=== PATIENT | female | born 1965 | race Caucasian/White ===

== ENCOUNTER 2016-12-02 21:16 | Emergency (ER) | payer OTHER ==
--- NOTE | 2016-12-02 22:01 | PDOC ---
History of Present Illness - General Chief Complaint: Nausea/Vomiting Stated Complaint: WEAKNESS, DIZZINESS,Nausea Time Seen by Provider: 12/02/16 22:00 - History of Present Illness Initial Comments: 51 y/o female with a history of HTN, sarcoidosis (history of pulmonary involvement in the past), and COPD presenting with SOB and generalized weakness since this AM. She states she had the same symptoms two years ago when she was admitted for pneumonia and treated successfully. She has had some recent darkening of her urine as well. She denies fevers, chills, nausea, vomiting, diarrhea, chest pain, or cough. 12/02/16 22:22 Past History - Past Medical History Allergies/Adverse Reactions: Allergies Allergy/AdvReac Type Severity Reaction Status Date / Time latex Allergy Verified 12/02/16 22:30 aspirin AdvReac Mild vomitting Verified 12/02/16 22:30 Home Medications: Ambulatory Orders Ipratropium/Albuterol Sulfate [Combivent Respimat Inhal [place]] 4 gm IH Q6H #1 aer.w.adap 08/20/14 Fluticasone Propionate [Flovent Diskus] 250 mcg IH DAILY 12/02/16 Furosemide [Lasix] 20 mg PO DAILY 12/02/16 Tiotropium [place] [Spiriva] 1 inh IH DAILY 12/02/16 Asthma: Yes Cardiac Disorders: Yes COPD: Yes (SARCOIDOSIS) GI Disorders: Yes (GALLSTONES) HTN: Yes - Suicide/Smoking/Psychosocial Hx Smoking Status: Yes Smoking History: Current every day smoker Have you smoked in the past 12 months: Yes Number of Cigarettes Smoked Daily: 20 'Breaking Loose' booklet given: 08/16/14 Hx Alcohol Use: No Substance Use Type: None Review of Systems - Review of Systems Constitutional: No: Diaphoresis, Fever HEENTM: No: Blurred Vision Respiratory: Yes: Shortness of Breath. No: Cough, Wheezing Cardiac (ROS): No: Chest Pain ABD/GI: Yes: Poor Appetite. No: Nausea, Vomiting : No: Burning, Discharge, Frequency Neurological: No: Headache, Numbness *Physical Exam - Physical Exam General Appearance: Yes: Nourished, Appropriately Dressed. No: Apparent Distress HEENT: positive: EOMI, DOROTHY, Normal Voice, Pharynx Normal Neck: positive: Trachea midline, Rigid. negative: Tender, Supple Respiratory/Chest: positive: Chest Tender. negative: Lungs Clear (Right mid lung crackles and rhonchi with diffuse faint crackles at bilateral bases.), Normal Breath Sounds, Respiratory Distress, Accessory Muscle Use Cardiovascular: positive: Regular Rhythm, Regular Rate (Diffcult to auscultate but clear.), S1, S2, Edema (trace edema). negative: JVD, Murmur ED Treatment Course - LABORATORY CBC & Chemistry Diagram: 12/02/16 22:12 12/02/16 22:12 Medical Decision Making - Medical Decision Making 51 year old female with history of sarcoidosis and COPD presenting with weakness and SOB concerning for pneumonia. R mid lung auscultation and pulse ox of 88% on RA are further corroborating some acute pulmonary pathology possibly exacerbating a chronic desaturation. Will cautiously provide supplemental oxygen given her presumed chronic hypoxic/ hypercarbic state. This is less likely PE, pneumothorax, or acute heart failure 12/02/16 22:49 12/02/16 23:38 PORT Score 61, PORT CLASS II, Low Risk <1% 12/02/16 23:[address] Parra and he agrees to an admission to further workup the weakness and hypoxia. Objectively the patient was hypoxic to mid to upper 80s on RA and has an RON ( Cr. 1.3 up from 0.9 on previous admission). Will order dry CT to determine if their is any underlying infection given CXR clear and no WBC to speak of. 12/03/16 00:30 *DC/Admit/Observation/Transfer Diagnosis at time of Disposition: Hypoxia, Acute kidney injury - Discharge Dispostion Admit: Yes - Referrals Referrals: Garth Grewal MD [Primary Care Provider] -
[2016-12-02] MEDS ORDERED: SODIUM CHLORIDE 1,000 ML IV STA (22:14)
[2016-12-02 22:24] LABS: BASOPHIL 1.2 % (0-2.0); WHITE BLOOD COUNT 7.6 K/mm3 (4.0-10.0)
[2016-12-02 22:25] VITALS: TEMP 98.8; BMI 75.6
[2016-12-02 22:27] LABS: VENOUS PH 7.4 (7.32-7.42)
[2016-12-02 22:35] LABS: EOSINOPHIL 2.1 % (0-4.5); MCH 33.6 pg (25.7-33.7); MCHC 34.6 g/dl (32.0-36.0); MEAN PLT VOLUME 8.5 fl (7.5-11.1); NEUTROPHILS 55.7 % (42.8-82.8); PLATELET COUNT 260 K/MM3 (134-434); RDW 14.3 % (11.6-15.6)
--- NOTE | 2016-12-02 22:52 | PDOC ---
Attending Attestation - Resident Resident Name: BekahRenanhudson - ED Attending Attestation I have performed the following: I have examined & evaluated the patient, The case was reviewed & discussed with the resident, I agree w/resident's findings & plan, Exceptions are as noted - HPI HPI: 12/02/16 22:44 This is a 51 yo F presenting to the ER with a complaint of weakness, cough Pt states she was being treated for pneumonia Pt has an underlying history of pulmonary sarcoidosis 12/02/16 22:57 - Physicial Exam PE: 12/02/16 22:54 Selected Entries 12/02/16 22:21 O2 Sat by Pulse 87 L Oximetry (%) On examination: No tachypnea Bibasilar crackles Right medial lung crackles No wheezing 12/02/16 22:57
[2016-12-02 23:08] LABS: ALBUMIN 4.2 g/dl (3.4-5.0); ALK PHOS 114 U/L (45-117); ANION GAP 5 (8-16); BILIRUBIN,TOTAL 0.6 mg/dL (0.2-1.0); CALCIUM 9.3 mg/dL (8.5-10.1); CO2 29 mmol/L (21-32); CREATININE 1.3 mg/dL (0.55-1.02); GLUCOSE,RANDOM 108 mg/dL (74-106); MAGNESIUM 2.3 mg/dL (1.8-2.4); PHOSPHOROUS 3.4 mg/dL (2.5-4.9); SGOT/AST 27 U/L (15-37); SGPT/ALT 49 U/L (12-78); TOT PROT 7.2 g/dl (6.4-8.2)
[2016-12-03 01:04] LABS: URINE APPEARANCE CLOUDY; URINE BILIRUBIN NEGATIVE (NEGATIVE); URINE BLOOD NEGATIVE (NEGATIVE); URINE COLOR YELLOW; URINE GLUCOSE (UA) NEGATIVE (NEGATIVE); URINE KETONE NEGATIVE (NEGATIVE); URINE LEUK ESTERASE TRACE (NEGATIVE); URINE NITRITE NEGATIVE (NEGATIVE); URINE PROTEIN NEGATIVE (NEGATIVE); URINE UROBILINOGEN NEGATIVE mg/dL (0.2-1.0)
[2016-12-03 01:09] LABS: URINE RBC <1 /hpf (0-3); URINE WBC 9 /hpf (3-5)
[2016-12-03 01:16] LABS: URINE MARIJUANA THC NEGATIVE ng/ml (CUTOFF=50)
[2016-12-03 01:54] VITALS: BP 108/66; PULSE 78
--- NOTE | 2016-12-03 10:42 | EKG ---
Test Reason : Blood Pressure : / mmHG Vent. Rate : 085 BPM Atrial Rate : 085 BPM P-R Int : 162 ms QRS Dur : 096 ms QT Int : 374 ms P-R-T Axes : 022 028 030 degrees QTc Int : 445 ms SINUS RHYTHM WITH OCCASIONAL PREMATURE VENTRICULAR COMPLEXES OTHERWISE NORMAL ECG WHEN COMPARED WITH ECG OF 15-JAN-2014 18:34, PREMATURE VENTRICULAR COMPLEXES ARE NOW PRESENT Confirmed by CELIA BONE, KARY ([id number]) on 12/03/2016 10:41:43 AM Referred By: Confirmed By:KARY YANG MD
== END 2016-12-03 02:00 | disposition left against medical advice (07) ==
LOC: JER 21:16 → JERBED 12-03 00:33 → UNDOADMIN 12-03 00:33 → JER 12-03 02:00
PROC: 3E0337Z Introduction of Electrolytic and Water Balance Substance into Peripheral Vein, Percutaneous Approach (ICD-10-PCS; principal; 2016-12-02)
DX: R09.02 Hypoxemia (principal); N17.9 Acute kidney failure, unspecified; I10 Essential (primary) hypertension; D86.0 Sarcoidosis of lung; J45.909 Unspecified asthma, uncomplicated
CPT/HCPCS: 71020-TC; 80053; 80307; 81003; 81015; 83605; 83735; 84100; 84703; 85025; 93005; 93010; 99283-25

== ENCOUNTER 2017-04-21 03:01 | Emergency (ER) | payer OTHER ==
[2017-04-21] MEDS ORDERED: LORazepam 1 MG TABLET PO ONE (03:15)
[2017-04-21] MEDS ORDERED: LORazepam 0.5 MG TABLET ONE (03:16)
--- NOTE | 2017-04-21 03:21 | PDOC ---
History of Present Illness - General Chief Complaint: Psychiatric Stated Complaint: FEELING JITTERY Time Seen by Provider: 04/21/17 03:04 - History of Present Illness Initial Comments: 04/21/17 03:15 52 F with h/o anxiety/depression, sarcoidosis, presenting to ER with complaint of "jitteriness". Pt states that she has chronic insomnia and anxiety. In order to sleep at night, she takes lorazepam 2mg. However, she ran out of this recently. Her PMD, Dr. Grewal, was supposed to refill it but according to pt, he inadvertently wrote her a prescription for klonopin instead, which she states does not work for her. Pt states that she took the klonopin tonight but was still unable to go to sleep, prompting her to come to the ER. Pt denies CP/SOB/palpitations. Denies F/C. Denies N/V/D. Pt denies ETOH or other substance use. Smokes cigarettes daily. Pt denies SI/HI/AVH. Past History - Past Medical History Allergies/Adverse Reactions: Allergies Allergy/AdvReac Type Severity Reaction Status Date / Time latex Allergy Verified 04/21/17 03:04 aspirin AdvReac Mild vomitting Verified 04/21/17 03:04 Home Medications: Ambulatory Orders Ipratropium/Albuterol Sulfate [Combivent Respimat Inhal [place]] 4 gm IH Q6H #1 aer.w.adap 08/20/14 Fluticasone Propionate [Flovent Diskus] 250 mcg IH DAILY 12/02/16 Furosemide [Lasix] 20 mg PO DAILY 12/02/16 Tiotropium [place] [Spiriva] 1 inh IH DAILY 12/02/16 Asthma: Yes Cardiac Disorders: Yes COPD: Yes (SARCOIDOSIS) GI Disorders: Yes (GALLSTONES) HTN: Yes - Suicide/Smoking/Psychosocial Hx Smoking Status: Yes Smoking History: Current every day smoker Have you smoked in the past 12 months: Yes Number of Cigarettes Smoked Daily: 20 'Breaking Loose' booklet given: 08/16/14 Hx Alcohol Use: No Drug/Substance Use Hx: No Substance Use Type: None Review of Systems - Review of Systems Comments:: 04/21/17 03:18 "GENERAL/CONSTITUTIONAL: No fever or chills. No weakness. HEAD, EYES, EARS, NOSE AND THROAT: No change in vision. No ear pain or discharge. No sore throat. CARDIOVASCULAR: No chest pain or shortness of breath. RESPIRATORY: No cough, wheezing, or hemoptysis. GASTROINTESTINAL: No nausea, vomiting, diarrhea or constipation. GENITOURINARY: No dysuria, frequency, or change in urination. MUSCULOSKELETAL: No joint or muscle swelling or pain. No neck or back pain. SKIN: No rash NEUROLOGIC: No headache, vertigo, loss of consciousness, or change in strength/ sensation. ENDOCRINE: No increased thirst. No abnormal weight change. HEMATOLOGIC/LYMPHATIC: No anemia, easy bleeding, or history of blood clots. ALLERGIC/IMMUNOLOGIC: No hives or skin allergy. " *Physical Exam - Physical Exam Comments: 04/21/17 03:18 "GENERAL: Awake, alert, and fully oriented, in no acute distress HEAD: No signs of trauma EYES: PERRLA, EOMI, sclera anicteric, conjunctiva clear ENT: Auricles normal inspection, hearing grossly normal, nares patent, oropharynx clear without exudates. Moist mucosa NECK: Nontender, no stepoffs, Normal ROM, supple, no lymphadenopathy, JVD, or masses LUNGS: Breath sounds equal, clear to auscultation bilaterally. No wheezes, and no crackles HEART: Regular rate and rhythm, normal S1 and S2, no murmurs, rubs or gallops ABDOMEN: Soft, nontender, normoactive bowel sounds. No guarding, no rebound. No masses EXTREMITIES: Normal range of motion, no edema. No clubbing or cyanosis. No cords, erythema, or tenderness NEUROLOGICAL: Cranial nerves II through XII intact. 5/5 strength and sensation in all extremities, Normal speech, normal gait SKIN: Warm, Dry, normal turgor, no rashes or lesions noted. PSYCH: normal affect, no tremors, no tongue fasciculations " Medical Decision Making - Medical Decision Making 04/21/17 03:19 52 F with jitteriness and insomnia after running out of her home ativan. Pt with no clinical signs of acute withdrawal. - Ativan 2mg PO - F/u PMD 04/21/17 03:20 Pt well appearing with normal vitals. Reports resolution of jitteriness after ativan 2mg Pt without s/s intoxication or withdrawal. Clinically stable for DC. I discussed the physical exam findings, ancillary test results and final diagnoses with the patient. I answered all of the patient's questions. The patient was satisfied with the care received and felt comfortable with the discharge plan and treatment plan. The patient agrees to follow up with the primary care physician within 24-72 hours. *DC/Admit/Observation/Transfer Diagnosis at time of Disposition: Anxiety - Discharge Dispostion Disposition: HOME Condition at time of disposition: Stable - Referrals Referrals: Garth Grewal MD [Primary Care Provider] - - Patient Instructions Printed Discharge Instructions: DI for Insomnia Additional Instructions: Follow up with Dr. Grewal tomorrow to have your medication prescriptions reviewed. If you experience worsening anxiety, chest pain, shortness of breath, palpitations, or any other concerning symptoms, return to the ER immediately. - Post Discharge Activity - Attestations Physician Attestion: 04/21/17 03:22 I, Dr. Rohit Rodriguez MD, attest that this document has been prepared under my direction and personally reviewed by me in its entirety. I further attest, that it accurately reflects all work, treatment, procedures and medical decision -making performed by me.
[2017-04-21 03:23] VITALS: BP 147/97; PULSE 87; TEMP 98.1; BMI 33.3
== END 2017-04-21 03:26 | disposition home or self-care (01) ==
LOC: FER 03:01
DX: F41.8 Other specified anxiety disorders (principal); D86.9 Sarcoidosis, unspecified; J45.909 Unspecified asthma, uncomplicated; I10 Essential (primary) hypertension
CPT/HCPCS: 99281-25

== ENCOUNTER 2017-05-16 09:19 | Emergency (ER) | payer OTHER ==
[2017-05-16 09:29] VITALS: BMI 31.6
--- NOTE | 2017-05-16 10:00 | PDOC ---
Attending Attestation - HPI HPI: 05/16/17 11:35 The patient is a 52 year old female with a significant PMH of HTN, sarcoidosis, anxiety, bronchitis, and daily cigarette use who presents to the emergency department s/p exposure to skunk weed over the past 3 days. The patient reports detecting the odor of marijuana throughout her hallway and house which is becoming stronger. She reports multiple symptoms including chest pain, shortness of breath, jitters, headache, nausea, and dry mouth intermittently for 3 days. She presents with her son who was exposed to the same environment. Denies current CP, last had CP 24hrs ago that was midsternal for 2-3 seconds. States currently, she feels only jittery. The patient denies vision changes. She denies vomiting or diarrhea. Denies focal weakness or numbness. Allergies: Latex, aspirin PCP: Dr. Grewal - Physicial Exam PE: 05/16/17 11:35 GENERAL: Awake, alert, and fully oriented, in no acute distress HEAD: No signs of trauma EYES: PERRLA, EOMI, sclera anicteric, conjunctiva clear ENT: Auricles normal inspection, hearing grossly normal, nares patent, oropharynx clear without exudates. Moist mucosa NECK: Normal ROM, supple, no lymphadenopathy, JVD, or masses LUNGS: Breath sounds equal. Mild diffuse scattered wheezing, but good air movement no crackles HEART: Regular rate and rhythm, normal S1 and S2, no murmurs, rubs or gallops ABDOMEN: Soft, nontender, normoactive bowel sounds. No guarding, no rebound. No masses EXTREMITIES: Normal range of motion, no edema. No clubbing or cyanosis. No cords , erythema, or tenderness BACK: No midline spinal tenderness in cervical/thoracic/lumbar region NEUROLOGICAL: Normal speech, cranial nerves intact, negative pronator drift, 5/ 5 strength in all 4 extremities, normal sensation to light touch in all 4 extremities, normal cerebellar exam, normal gait, normal reflexes and tone SKIN: Warm, Dry, normal turgor, no rashes or lesions noted. <Jerald Grey - Last Filed: 05/16/17 11:35> - Resident Resident Name: Casey Dutton - ED Attending Attestation I have performed the following: I have examined & evaluated the patient, The case was reviewed & discussed with the resident, I agree w/resident's findings & plan, Exceptions are as noted - Medical Decision Making 05/16/17 12:03 52-year-old female hx smoking, sarcoidosis, anxiety presents to emergency Department with son out of concern for exposure to marijuana from neighbors. Vitals wnl, exam with mild diffuse wheezing. Possible COPD exac although pt has no formal dx vs bronchitis Given winter time, and pt stating she has been turning the heat on more, a CO level was checked which was elevated to 7.5% likely 2/2 smoking (1/2 PPD). ABG O2 sat a touch low, likely 2/2 smoking as well. Pt was given a neb and feels much better. O2 sat currently 98% on RA. Remainder of labs including a trop wnl (creat up to 1.1 but at BL). EKG non ischemic. CXR was no acute patholgy. Unlikely trigger, no identifiable toxidrome , CO wnl for a smoker. Given well appearance and benign work up, will DC with albuterol pump given relief to SOB - pt to discuss odor with caroline. Pt advised to f/u with Dr. Grewal in 1-2 days. I discussed the physical exam findings, ancillary test results and final diagnoses with the patient. I answered all of the patient's questions. The patient was satisfied with the care received and felt comfortable with the discharge plan and treatment plan. The patient will call their primary care physician within 24 hours to arrange follow-up and will return to the Emergency Department with any new, persistent or worsening symptoms. <Mahesh Ahuja - Last Filed: 05/16/17 12:08>
[2017-05-16] MEDS ORDERED: ACETAMINOPHEN 325 MG TABLET (FP) PO ONE (10:34)
--- NOTE | 2017-05-16 10:34 | PDOC ---
History of Present Illness - General Chief Complaint: Shortness of Breath Stated Complaint: SOB (EXPOSURE TO SUBSTANCE) Time Seen by Provider: 05/16/17 09:37 History Source: Patient Exam Limitations: No Limitations - History of Present Illness Initial Comments: 05/16/17 10:31 Patient is a 52F with history of anxiety and bronchitis here today complaining of exposure to "skunk weed" for the past 2-3 days. She states that her neighbor has been smoking marijuana and the smell has permeated her house. She is complaining of chest pain, "jitters", headache, nausea, abdominal pain and shortness of breath. She states that her son has the same symptoms. She states that she recently turned the heat on in her house because she had to open all of the windows to get the smell out. Reports no acute vision changes. Past History - Past Medical History Allergies/Adverse Reactions: Allergies Allergy/AdvReac Type Severity Reaction Status Date / Time latex Allergy Verified 04/21/17 03:04 aspirin AdvReac Mild vomitting Verified 04/21/17 03:04 Home Medications: Ambulatory Orders Albuterol Sulfate Inhaler - [Ventolin Hfa Inhaler -] 1 - 2 inh PO QID PRN #1 inhaler 05/16/17 Hydrochlorothiazide [Hctz -] 0 mg PO DAILY 05/16/17 predniSONE [Deltasone -] 1 mg PO ASDIR 05/16/17 Asthma: Yes Cardiac Disorders: Yes COPD: Yes (SARCOIDOSIS) DVT: No GI Disorders: Yes (GALLSTONES) HTN: Yes - Suicide/Smoking/Psychosocial Hx Smoking Status: Yes Smoking History: Current every day smoker Have you smoked in the past 12 months: Yes Number of Cigarettes Smoked Daily: 20 Information on smoking cessation initiated: No 'Breaking Loose' booklet given: 08/16/14 Hx Alcohol Use: No Drug/Substance Use Hx: No Substance Use Type: None Review of Systems - Review of Systems Comments:: 05/16/17 10:38 GENERAL/CONSTITUTIONAL: No fever or chills. No weakness. HEAD, EYES, EARS, NOSE AND THROAT: No change in vision. No sore throat. CARDIOVASCULAR: Positive for chest pain and shortness of breath RESPIRATORY: Positive for cough, wheezing. Negative for hemoptysis. GASTROINTESTINAL: Positive for nausea. Negative for vomiting, diarrhea or constipation. GENITOURINARY: No dysuria, frequency, or change in urination. MUSCULOSKELETAL: No joint or muscle swelling or pain. No neck or back pain. SKIN: No rash NEUROLOGIC: Positive for headache. Negative for vertigo, loss of consciousness, or change in strength/sensation. ENDOCRINE: No increased thirst. No abnormal weight change ALLERGIC/IMMUNOLOGIC: No hives or skin allergy. *Physical Exam - Vital Signs Last Vital Signs Temp Pulse Resp BP Pulse Ox 99.2 F 90 18 153/80 99 05/16/17 09:25 05/16/17 09:25 05/16/17 09:25 05/16/17 09:25 05/16/17 09:25 - Physical Exam Comments: 05/16/17 10:41 GENERAL: Awake, alert, and fully oriented, in no acute distress HEAD: No signs of trauma, normocephalic, atraumatic EYES: PERRLA, EOMI, sclera anicteric, conjunctiva clear ENT: Auricles normal inspection, hearing grossly normal, nares patent, oropharynx clear without exudates. Moist mucosa NECK: Normal ROM, supple, no lymphadenopathy, JVD, or masses LUNGS: No distress, speaks full sentences, scattered wheezes bilaterally HEART: Regular rate and rhythm, normal S1 and S2, no murmurs, rubs or gallops, peripheral pulses normal and equal bilaterally. ABDOMEN: Soft, nontender, normoactive bowel sounds. No guarding, no rebound. No masses EXTREMITIES: Normal inspection, Normal range of motion, no edema. No clubbing or cyanosis. NEUROLOGICAL: Cranial nerves II through XII grossly intact. Normal speech, normal gait, no focal sensorimotor deficits SKIN: Warm, Dry, normal turgor, no rashes or lesions noted. ED Treatment Course - LABORATORY CBC & Chemistry Diagram: 05/16/17 10:30 05/16/17 10:30 - RADIOLOGY Radiology Studies Ordered: Category Date Time Status CHEST PA & LAT [RAD] Stat Radiology 05/16/17 10:01 Ordered Medical Decision Making - Medical Decision Making 05/16/17 10:44 52F with history of anxiety and bronchitis here today with possible toxic exposure and chest pain. Vital signs stable. No clinical signs of toxidrome present. Will evaluate chest pain as atypical chest pain with cbc, cmp, trop, ekg, trop, cxr. Will rule out CO poisoning with ABG. Will also do utox. Poison control contacted, agrees with plan. EKG shows normal sinus rhythm with normal rate = 81bpm. No st elevations/ depressions. No significant t wave abnormalities. Normal MI/QRS/QTc intervals. 05/16/17 11:35 Laboratory Tests 05/16/17 05/16/17 05/16/17 09:25 10:20 10:30 WBC 13.6 H D Hgb 14.8 Hct 42.8 Plt Count 342 D INR Carboxyhemoglobin 7.3 H BUN Creatinine Troponin I Benzodiazepines Screen Positive U Marijuana (THC) Screen Negative 05/16/17 05/16/17 10:30 10:30 WBC Hgb Hct Plt Count INR 0.91 Carboxyhemoglobin BUN 22 H Creatinine 1.1 H Troponin I < 0.02 Benzodiazepines Screen U Marijuana (THC) Screen CBC normal. Trop undetectable. CMP reassuring. Carboxyhemoglobin elevated to 7.3 , but explained by patient being active smoker. Benzos positive on tox screen, marijuana negative. O2 level low on abg, given duoneb. 05/16/17 11:39 CXR shows no acute changes from prior study, no acute cardiopulmonary process. 05/16/17 13:52 Poison control notified of results and patient discharge. *DC/Admit/Observation/Transfer Diagnosis at time of Disposition: Shortness of breath - Discharge Dispostion Disposition: HOME Condition at time of disposition: Good Admit: No - Prescriptions Prescriptions: Albuterol Sulfate Inhaler - [Ventolin Hfa Inhaler -] 1 - 2 inh PO QID PRN #1 inhaler PRN Reason: Short Of Breath/Wheezing - Referrals Referrals: Garth Grewal MD [Primary Care Provider] - - Patient Instructions Printed Discharge Instructions: DI for Shortness of Breath Additional Instructions: Please follow up with your primary care physician this week. Please return if you have any new, worsening or concerning symptoms. - Post Discharge Activity
[2017-05-16 10:38] LABS: ARTERIAL BLD GAS O2 SATURATION 92.6 % (90-98.9); ARTERIAL BLOOD GAS BASE EXCESS -2.6 meq/l (-2-2); ARTERIAL BLOOD GAS PO2 65.5 mmHg (80-100); ARTERIAL BLOOD GAS pH 7.36 (7.35-7.45)
[2017-05-16] MEDS ORDERED: ACETAMINOPHEN 325 MG TABLET (FP) ONE (10:38)
[2017-05-16 10:39] LABS: ARTERIAL BLOOD GAS PCO2 40.2 mmHg (35-45); CARBOXYHEMOGLOBIN 7.3 gm% (0.5-2.0)
[2017-05-16 10:39] LABS: BASO % 1.3 % (0-2.0); EOS % 1.2 % (0-4.5); HEMATOCRIT 42.8 % (32.4-45.2); HEMOGLOBIN 14.8 GM/dL (10.7-15.3); LYMPH % 21.5 % (8-40); MCH 33.7 pg (25.7-33.7); MCHC 34.6 g/dl (32.0-36.0); MEAN CELL VOLUME 97.3 fl (80-96); MONO % 5.8 % (3.8-10.2); NEUT % 70.2 % (42.8-82.8); PLATELET COUNT 342 K/MM3 (134-434); RDW 14.1 % (11.6-15.6); WHITE BLOOD COUNT 13.6 K/mm3 (4.0-10.0)
[2017-05-16 10:47] LABS: COCAINE, UR NEGATIVE ng/ml (CUTOFF=300); METHADONE, UR NEGATIVE ng/ml (CUTOFF=300); OPIATES, URI NEGATIVE ng/ml (CUTOFF=300); PHENCYCLIDINE,URINE NEGATIVE ng/ml (CUTOFF=25); URINE AMPHETAMINES NEGATIVE ng/ml (CUTOFF=500); URINE BARBITURATES NEGATIVE ng/ml (CUTOFF=200)
[2017-05-16 10:48] LABS: URINE BENZODIAZEPINES POSITIVE ng/ml (CUTOFF=200)
[2017-05-16 10:52] LABS: INR 0.91 (0.82-1.09); PROTHROMBIN TIME (PATIENT) 10.3 SEC (9.98-11.88)
[2017-05-16] MEDS ORDERED: ALBUTEROL SO4 2.5/IPRATROPIUM 0.5 INH SOL 3 ML VIAL.NEB. NEB ONE ×2 (10:52→11:00)
[2017-05-16 11:04] LABS: ANION GAP 8 (8-16); BILIRUBIN,TOTAL 0.3 mg/dL (0.2-1.0); BLOOD UREA NITROGEN 22 mg/dL (7-18); CALCIUM 8.6 mg/dL (8.5-10.1); CHLORIDE 111 mmol/L (98-107); CO2 20 mmol/L (21-32); CREATININE 1.1 mg/dL (0.55-1.02); GLUCOSE,RANDOM 95 mg/dL (74-106); MAGNESIUM 2.1 mg/dL (1.8-2.4); POTASSIUM 4.6 mmol/L (3.5-5.1); SGOT/AST 10 U/L (15-37); SGPT/ALT 21 U/L (12-78); SODIUM 139 mmol/L (136-145)
[2017-05-16 11:07] LABS: ALK PHOS 151 U/L (45-117)
[2017-05-16 11:50] VITALS: BP 146/83; PULSE 92; TEMP 98.4
--- NOTE | 2017-05-16 19:52 | EKG ---
Test Reason : Blood Pressure : / mmHG Vent. Rate : 081 BPM Atrial Rate : 081 BPM P-R Int : 150 ms QRS Dur : 088 ms QT Int : 352 ms P-R-T Axes : 024 032 047 degrees QTc Int : 408 ms NORMAL SINUS RHYTHM NORMAL ECG WHEN COMPARED WITH ECG OF 02-DEC-2016 23:26, PREMATURE VENTRICULAR COMPLEXES ARE NO LONGER PRESENT Confirmed by MONIKA CUI MD ([id number]) on 05/16/2017 7:52:53 PM Referred By: Confirmed By:MONIKA CUI MD
== END 2017-05-16 11:55 | disposition home or self-care (01) ==
LOC: JER 09:19
DX: R06.02 Shortness of breath (principal); X58.XXXA Exposure to other specified factors, initial encounter; Y93.89 Activity, other specified; Y92.89 Other specified places as the place of occurrence of the external cause
CPT/HCPCS: 36415; 36600; 71046-TC-FY; 80053; 80307; 82375; 82550; 82803; 83050; 83735; 84484; 85025; 85610; 93005; 93010; 99282-25

== ENCOUNTER 2017-07-05 08:07 | Inpatient (IN) | payer OTHER ==
[2017-07-05 08:14] VITALS: BMI 31.1
[2017-07-05] MEDS ORDERED: ALBUTEROL SO4 2.5/IPRATROPIUM 0.5 INH SOL 3 ML VIAL.NEB. NEB ONE ×5 (08:17→15:26)
--- NOTE | 2017-07-05 08:23 | PDOC ---
Attending Attestation - HPI HPI: 07/05/17 10:01 The patient is a 52 year old female with a significant PMH of sarcoidosis, COPD , HTN, cigarette use, and recent flu diagnosis ([address] Grewal) who presents to the emergency department with shortness of breath, diarrhea, and fever (T. max 102F) beginning approximately 5 days ago. The patient reports associated decreased appetite and nausea with her diarrhea and associated productive cough with green sputum with her shortness of breath. The patient states she has been unable to tolerate solid PO over the past 5 days. Allergies: Aspirin, Latex. PCP: Dr. Grewal - Physicial Exam PE: 07/05/17 10:01 Vitals: Triage Vital signs reviewed General Appearance: no acute distress, well nourished well developed, Nose: Nares patent bilaterally;no nasal congestion Throat: Posterior oropharynx without erythema, mucous membranes moist, Cardiac: Regular rate and rhythm, no murmurs, no rubs, no gallops, Lungs: (+) Bilateral wheezing. Abdomen: Soft, nondistended, normal bowel sounds, nontender to palpation Extremities: Full range of motion to all extremities, no cyanosis, clubbing, or edema Skin: Warm and dry, no rashes or lesions, no petechiae Neuro: AOX3; Cranial Nerves 2-12 grossly intact, Strength intact to all extremities, Sensation intact to all extremities Psych: normal mood, normal affect <Jerald Grey - Last Filed: 07/05/17 10:31> - Resident Resident Name: Misha Dejesus - ED Attending Attestation I have performed the following: I have examined & evaluated the patient, The case was reviewed & discussed with the resident, I agree w/resident's findings & plan, Exceptions are as noted - Critical Care Time Total Critical Care Time: 35 Critical Care Statement: The care of this patient involved high complexity decision making to prevent further life threatening deterioration of the patient 's condition and/or to evaluate & treat vital organ system(s) failure or risk of failure. - Medical Decision Making 07/05/17 10:25 52 years old with multiple medical problems including sarcoidosis COPD active tobacco hypertension presents with difficulty breathing shortness of breath cough with sputum fever Tmax 102 Differential diagnosis includes follow URI pneumonia sepsis We'll check labs lactic x-ray and reassessed Reevaluation vital signs laboratory analysis consistent with sepsis from pneumonia patient covered with Zosyn and vancomycin for presumed hospital- acquired pneumonia We'll admit to medicine for further management. <Edmund Kaye - Last Filed: 07/05/17 16:26> Heart Score/ECG Review - ECG Impressions Comment:: 07/05/17 10:24 EKG performed at 829 Sinus tachycardia [address] elevations no T-wave inversions Interpreted by me. [place] interval 140, QRS 92, QTC 432 <Edmund Kaye - Last Filed: 07/05/17 16:26>
--- NOTE | 2017-07-05 08:33 | PDOC ---
History of Present Illness - General Chief Complaint: Shortness of Breath Stated Complaint: SOB Time Seen by Provider: 07/05/17 08:16 - History of Present Illness Initial Comments: 52 year old female with history of anxiety, sarcoidosis, and COPD (intubated in the past ~ 10 years ago) presenting with gradually worsening SOB, myalgias, fevers, and productive cough over the past 4-[address] Grewal 5 days ago who clinically diagnosed her with the flu and started her on Oseltamivir. She has been taking her home nebulizer treatments but states that her SOB has worsened so she came in today. She has had fevers to 102 multiple time per day over the last few days, occasional diarrhea, and her cough has gradually become productive of thicker and greener material over the last 4-5 days. 07/05/17 08:40 Past History - Past Medical History Allergies/Adverse Reactions: Allergies Allergy/AdvReac Type Severity Reaction Status Date / Time latex Allergy Verified 07/05/17 08:08 aspirin AdvReac Mild vomitting Verified 07/05/17 08:08 Home Medications: Ambulatory Orders Albuterol Sulfate Inhaler - [Ventolin Hfa Inhaler -] 1 - 2 inh PO QID PRN #1 inhaler 05/16/17 Hydrochlorothiazide [Hctz -] 0 mg PO DAILY 05/16/17 Asthma: Yes Cardiac Disorders: Yes COPD: Yes (SARCOIDOSIS) DVT: No GI Disorders: Yes (GALLSTONES) HTN: Yes - Suicide/Smoking/Psychosocial Hx Smoking Status: Yes Smoking History: Current every day smoker Have you smoked in the past 12 months: Yes Number of Cigarettes Smoked Daily: 20 Information on smoking cessation initiated: Yes 'Breaking Loose' booklet given: 07/05/17 Hx Alcohol Use: No Drug/Substance Use Hx: No Substance Use Type: None Review of Systems - Review of Systems Constitutional: Yes: Chills, Fever, Loss of Appetite. No: Diaphoresis HEENTM: No: Blurred Vision, Tearing, Cataracts Respiratory: Yes: Cough, Shortness of Breath, SOB with Exertion, Productive cough. No: Wheezing Cardiac (ROS): Yes: Palpitations, Chest Tightness. No: Chest Pain, Edema, Irregular Heart Rate ABD/GI: No: Diarrhea : No: Burning, Dysuria, Discharge Musculoskeletal: Yes: Back Pain, Muscle Pain Integumentary: No: Bruising, Flushing, Lesions Neurological: Yes: Tremors. No: Headache, Numbness, Paresthesia Psychiatric: Yes: Anxiety Endocrine: No: Increased Thirst, Increased Urine, Unexplained Weight Loss, Change in Weight *Physical Exam - Vital Signs Last Vital Signs Temp Pulse Resp BP Pulse Ox 98.6 F 125 H 30 H 132/113 88 L 07/05/17 08:09 07/05/17 08:09 07/05/17 08:09 07/05/17 08:09 07/05/17 08:09 - Physical Exam General Appearance: Yes: Nourished, Appropriately Dressed, Apparent Distress, Mild Distress HEENT: positive: EOMI, DOROTHY, Normal ENT Inspection Neck: positive: Trachea midline, Normal Thyroid, Supple. negative: Tender, Rigid Respiratory/Chest: positive: Respiratory Distress, Crackles. negative: Chest Tender, Lungs Clear, Normal Breath Sounds (bilateal lower lung field crackles), Accessory Muscle Use, Wheezing Cardiovascular: positive: Regular Rhythm, Tachycardia. negative: Regular Rate ED Treatment Course - LABORATORY CBC & Chemistry Diagram: 07/05/17 08:55 07/05/17 08:55 Medical Decision Making - Medical Decision Making 52 year old with moderate respiratory distress in the setting of worsening productive cough and symptoms of viral URI, now concerning for superimposed bacterial infection. WBC 16, lactate 3s, acidemic, and danie (1.5 vs. baseline of 1.0). EKG demonstrated NSR, QTc 432, Patient originally was reluctant to be admitted and wanted to sign out AMA but Dr. Kaye persuaded the patient to stay overnight at least. Her major concerns were inability to see her autistic son, be with her service dog, and "claustrophobia". Patient admitted under tele with Dr. Bragg as the care provider. 07/05/17 11:00 *DC/Admit/Observation/Transfer Diagnosis at time of Disposition: COPD (chronic obstructive pulmonary disease) Qualifiers: COPD type: COPD with acute exacerbation Qualified Code(s): J44.1 - Chronic obstructive pulmonary disease with (acute) exacerbation PNA (pneumonia) Qualifiers: Pneumonia type: due to unspecified organism Laterality: unspecified laterality Lung location: unspecified part of lung Qualified Code(s): J18.9 - Pneumonia, unspecified organism - Discharge Dispostion Condition at time of disposition: Improved Admit: Yes - Referrals - Patient Instructions - Post Discharge Activity
[2017-07-05] MEDS ORDERED: methylPREDNISolone NA SUCC 125 MG/2 ML VIAL IVPUSH ONE (08:35)
[2017-07-05 09:03] LABS: VENOUS PC02 42.7 mmHg (38-52); VENOUS PO2 53.1 mmHg (28-48)
[2017-07-05 09:06] LABS: VENOUS PH 7.26 (7.32-7.42)
[2017-07-05 09:10] LABS: HEMATOCRIT 38.4 % (32.4-45.2); HEMOGLOBIN 13.2 GM/dL (10.7-15.3); MCH 33.7 pg (25.7-33.7); MCHC 34.4 g/dl (32.0-36.0); MEAN PLT VOLUME 8.3 fl (7.5-11.1); PLATELET COUNT 326 K/MM3 (134-434); RBC 3.92 M/mm3 (3.60-5.2); RDW 14.4 % (11.6-15.6); WHITE BLOOD COUNT 16.1 K/mm3 (4.0-10.0)
[2017-07-05] MEDS ORDERED: methylPREDNISolone NA SUCC 125 MG/2 ML VIAL ONE (09:13)
[2017-07-05 09:14] LABS: INR 1.19 (0.82-1.09); PROTHROMBIN TIME (PATIENT) 13.4 SEC (9.7-13.0)
[2017-07-05 09:17] LABS: ACTIVATED PTT 28.8 SECONDS (26.9-34.4)
[2017-07-05 09:30] LABS: ALBUMIN 3.5 g/dl (3.4-5.0); ANION GAP 10 (8-16); BILIRUBIN,TOTAL 0.8 mg/dL (0.2-1.0); BLOOD UREA NITROGEN 18 mg/dL (7-18); CHLORIDE 95 mmol/L (98-107); CO2 27 mmol/L (21-32); CREATININE 1.5 mg/dL (0.55-1.02); GLUCOSE,RANDOM 125 mg/dL (74-106); SGOT/AST 81 U/L (15-37); SGPT/ALT 50 U/L (12-78); SODIUM 132 mmol/L (136-145); TOT PROT 7.2 g/dl (6.4-8.2)
[2017-07-05 09:31] LABS: ALK PHOS 127 U/L (45-117)
[2017-07-05] MEDS ORDERED: SODIUM CHLORIDE 0.9% 500 ML INFUS.BAG IV ONE ×2 (09:40→09:49)
[2017-07-05] MEDS ORDERED: PIPERACILLIN/TAZOB 4.5 GM 4.5 GM in DEXTROSE 5%-WATER 100 ML IVPB ONE (09:46)
[2017-07-05] MEDS ORDERED: PIPERACILLIN/TAZOB 4.5 GM 0 GM/0 ML BAG IVPB ONE (09:54)
[2017-07-05] MEDS ORDERED: PIPERACILLIN/TAZOB 4.5 GM 4.5 GM/100 ML BAG IVPB ONE (10:02)
[2017-07-05] MEDS: VANCOMYCIN 1,500 MG in DEXTROSE 5%-WATER - 250 ML IVPB ONE ×2 (10:19→10:53)
[2017-07-05] MEDS ORDERED: VANCOMYCIN 1,500 MG in DEXTROSE 5%-WATER - 500 ML IVPB ONE (10:21)
[2017-07-05 10:48] LABS: PHOSPHOROUS 3.9 mg/dL (2.5-4.9)
--- NOTE | 2017-07-05 11:29 | HP ---
Admitting History and Physical - Primary Care Physician PCP: Garth Grewal - Admission Chief Complaint: I can't breathe History of Present Illness: Ms Wick is a 52 year old female who comes in with complaints of coughing and shortness of breath. She says it began last week, about 4-5 days ago. She says the difficulty breathing is constant. It is associated with a productive cough, the sputum originally was clear but now it is green. She had fevers of 102 at home and also had chills. She called into the office and was prescribed tamiflu for possible influenza, she took 2 days of this. She says her breathing continued to worsen and the cough became more severe so she came in for further evaluation. She has chest pain associated with the cough, it is only felt with coughing and is severe. She denies lightheadedness, passing out, chest pressure , nausea, vomiting, diarrhea, constipation, difficulty or pain on urination, or swelling. She is here with her dog for anxiety. History Source: Patient Limitations to Obtaining History: No Limitations - Past Medical History Cardiovascular: Yes: HTN Pulmonary: Yes: COPD, Other (sarcoidosis) Psych: Yes: Anxiety, Depression - Past Surgical History Additional Past Surgical History: R leg repair after an accident - Smoking History Smoking history: Current every day smoker Have you smoked in the past 12 months: Yes Aproximately how many cigarettes per day: 20 - Alcohol/Substance Use Hx Alcohol Use: No History of Substance Use: reports: None - Social History ADL: Independent History of Recent Travel: No Home Medications - Allergies Allergies/Adverse Reactions: Allergies Allergy/AdvReac Type Severity Reaction Status Date / Time latex Allergy Verified 07/05/17 08:08 aspirin AdvReac Mild vomitting Verified 07/05/17 08:08 - Home Medications Home Medications: Ambulatory Orders Albuterol Sulfate Inhaler - [Ventolin Hfa Inhaler -] 1 - 2 inh PO QID PRN #1 inhaler 05/16/17 Hydrochlorothiazide [Hctz -] 0 mg PO DAILY 05/16/17 Family Disease History - Family Disease History Family Disease History: Heart Disease: Mother (possible sarcoid), Other: Father (aneursym), Mother Review of Systems Findings/Remarks: Full review of systems obtained, as per HPI and otherwise negative Physical Examination Vital Signs: Vital Signs Temperature 37.0 C 07/05/17 08:09 Pulse Rate 125 H 07/05/17 09:10 Respiratory Rate 30 H 07/05/17 08:09 Blood Pressure 132/113 07/05/17 08:09 O2 Sat by Pulse Oximetry (%) 94 L 07/05/17 09:10 Constitutional: Yes: Anxious Eyes: Yes: Conjunctiva Clear, EOM Intact, PERRL HENT: Yes: Atraumatic, Normocephalic Respiratory: Yes: Regular, Cough (productive), Rhonchi. No: CTA Bilaterally, Rales, Wheezes Gastrointestinal: Yes: Normal Bowel Sounds, Soft. No: Distention, Tenderness Extremities: Yes: WNL Edema: No Labs: CBC, BMP 07/05/17 08:55 07/05/17 08:55 Imaging - Results Chest X-ray: Report Reviewed, Image Reviewed Problem List - Problems (1) PNA (pneumonia) Assessment/Plan: -patient presents with CAP -was prescribed empiric tamiflu, swab currently negative -admit to telemetry secondary to tachycardia -give rocephin and zithromax -lactobacillus Code(s): J18.9 - PNEUMONIA, UNSPECIFIED ORGANISM Qualifiers: Pneumonia type: due to unspecified organism Laterality: unspecified laterality Lung location: unspecified part of lung Qualified Code(s): J18.9 - Pneumonia, unspecified organism (2) RON (acute kidney injury) Assessment/Plan: -hold HCTZ -hydrate with IVF Code(s): N17.9 - ACUTE KIDNEY FAILURE, UNSPECIFIED (3) HTN (hypertension) Assessment/Plan: -currently controlled -hold HCTZ currently -resumption when renal function improves Code(s): I10 - ESSENTIAL (PRIMARY) HYPERTENSION (4) COPD (chronic obstructive pulmonary disease) Assessment/Plan: -scheduled duonebs -consider possible steroids if breathing does not improve Code(s): J44.9 - CHRONIC OBSTRUCTIVE PULMONARY DISEASE, UNSPECIFIED Qualifiers: COPD type: COPD with acute exacerbation Qualified Code(s): J44.1 - Chronic obstructive pulmonary disease with (acute) exacerbation (5) Sepsis Assessment/Plan: -secondary to pneumonia -febrile, leukocytosis, RON, lactic acidosis, tachycardia, and tachypnea -monitor for improvement Code(s): A41.9 - SEPSIS, UNSPECIFIED ORGANISM
[2017-07-05] MEDS ORDERED: ACETAMINOPHEN 325 MG TABLET (FP) PO PRN (11:35)
[2017-07-05] MEDS ORDERED: ONDANSETRON 4 MG/2 ML VIAL IVPUSH PRN (11:40)
[2017-07-05] MEDS ORDERED: SODIUM CHLORIDE 1,000 ML IV SCH (11:45)
--- NOTE | 2017-07-05 12:09 | EKG ---
Test Reason : Blood Pressure : / mmHG Vent. Rate : 117 BPM Atrial Rate : 117 BPM P-R Int : 140 ms QRS Dur : 092 ms QT Int : 310 ms P-R-T Axes : 060 056 043 degrees QTc Int : 432 ms SINUS TACHYCARDIA CANNOT RULE OUT ANTERIOR INFARCT , AGE UNDETERMINED ABNORMAL ECG WHEN COMPARED WITH ECG OF 16-MAY-2017 09:29, NO SIGNIFICANT CHANGE WAS FOUND Confirmed by RAJ LIU MD ([id number]) on 07/05/2017 12:08:51 PM Referred By: Confirmed By:RAJ LIU MD
[2017-07-05 12:18] LABS: PLATELET ESTIMATE NORMAL
[2017-07-05] MEDS: ALBUTEROL SO4 2.5/IPRATROPIUM 0.5 INH SOL 3 ML VIAL.NEB. NEB SCH ×3 (13:32→19:30)
[2017-07-05] MEDS: HEPARIN NA (PORCINE) 5,000 UNITS/ML 1ML VIAL SQ SCH ×2 (16:29→21:10)
[2017-07-05] MEDS: guaiFENesin 600 MG TABLET.ER (FP) PO SCH ×2 (16:29→21:11)
[2017-07-05] MEDS: LACTOBACILLUS ACIDOPHILUS 1 TABLET PO SCH (17:44)
[2017-07-05 18:20] LABS: URINE APPEARANCE SLCLOUDY; URINE BILIRUBIN NEGATIVE (<2.0 mg/dL); URINE BLOOD 1+ (NEGATIVE); URINE COLOR YELLOW; URINE GLUCOSE (UA) NEGATIVE (NEGATIVE); URINE KETONE NEGATIVE (NEGATIVE); URINE LEUK ESTERASE NEGATIVE (NEGATIVE); URINE NITRITE NEGATIVE (NEGATIVE); URINE UROBILINOGEN NEGATIVE mg/dL (0.2-1.0)
[2017-07-05 18:35] LABS: URINE PROTEIN 1+ (NEGATIVE)
[2017-07-05 18:38] LABS: EPI CELLS RARE /HPF (FEW); URINE HYALINE CAST 3 /lpf; URINE MUCUS RARE
[2017-07-05] MEDS: methylPREDNISolone NA SUCC 40 MG/1 ML VIAL IVPUSH SCH ×2 (20:06)
[2017-07-05] MEDS ORDERED: LORazepam 1 MG TABLET PO PRN (20:11)
[2017-07-06] MEDS ORDERED: ALBUTEROL SO4 2.5/IPRATROPIUM 0.5 INH SOL 3 ML VIAL.NEB. NEB ONE (01:32)
[2017-07-06] MEDS: methylPREDNISolone NA SUCC 40 MG/1 ML VIAL IVPUSH SCH ×2 (02:02→08:59)
[2017-07-06] MEDS: HEPARIN NA (PORCINE) 5,000 UNITS/ML 1ML VIAL SQ SCH (05:23)
[2017-07-06 07:45] LABS: HEMATOCRIT 35.9 % (32.4-45.2); HEMOGLOBIN 12.4 GM/dL (10.7-15.3); MCH 33.5 pg (25.7-33.7); MCHC 34.6 g/dl (32.0-36.0); MEAN PLT VOLUME 8.4 fl (7.5-11.1); PLATELET COUNT 358 K/MM3 (134-434); RDW 14.1 % (11.6-15.6); WHITE BLOOD COUNT 15.8 K/mm3 (4.0-10.0)
[2017-07-06 07:48] LABS: ANION GAP 12 (8-16); BLOOD UREA NITROGEN 26 mg/dL (7-18); CALCIUM 9.1 mg/dL (8.5-10.1); CHLORIDE 98 mmol/L (98-107); CO2 22 mmol/L (21-32); GLUCOSE,RANDOM 173 mg/dL (74-106); MAGNESIUM 2.5 mg/dL (1.8-2.4); POTASSIUM 4.2 mmol/L (3.5-5.1); SODIUM 132 mmol/L (136-145)
[2017-07-06 07:49] LABS: CREATININE 1.2 mg/dL (0.55-1.02); PHOSPHOROUS 3.7 mg/dL (2.5-4.9)
[2017-07-06] MEDS: ALBUTEROL SO4 2.5/IPRATROPIUM 0.5 INH SOL 3 ML VIAL.NEB. NEB SCH (08:03)
[2017-07-06 08:24] VITALS: BP 132/82; PULSE 96; TEMP 97.8
[2017-07-06] MEDS ORDERED: PT OWN MED DRAWER 7, Y5N ONE (08:51)
[2017-07-06] MEDS ORDERED: cefTRIAXone SODIUM 1 GM VIAL ONE (08:52)
[2017-07-06] MEDS ORDERED: DEXTROSE 5%-WATER - 50 ML IVPB ONE (08:52)
[2017-07-06] MEDS: guaiFENesin 600 MG TABLET.ER (FP) PO SCH (08:59)
[2017-07-06] MEDS: LACTOBACILLUS ACIDOPHILUS 1 TABLET PO SCH (08:59)
[2017-07-06 09:11] LABS: PLATELET ESTIMATE NORMAL
[2017-07-06] MEDS ORDERED: CEFTRIAXONE 1 GM in DEXTROSE 5%-WATER - 50 ML IVPB SCH (10:00)
[2017-07-06] MEDS ORDERED: HYDROCHLOROTHIAZIDE 12.5 MG CAPSULE (FP) PO SCH (10:00)
[2017-07-06] MEDS ORDERED: AZITHROMYCIN IVPB 500 MG in DEXTROSE 5%-WATER - 250 ML IVPB SCH (10:00)
--- NOTE | 2017-07-06 11:34 | DS ---
Physical Examination Vital Signs: Vital Signs Temperature 36.6 C 07/06/17 08:23 Pulse Rate 96 H 07/06/17 08:23 Respiratory Rate 20 07/06/17 08:25 Blood Pressure 132/82 07/06/17 08:23 O2 Sat by Pulse Oximetry (%) 91 L 07/06/17 08:25 Constitutional: Yes: Anxious, Moderate Distress Cardiovascular: Yes: Tachycardia. No: Pulse Irregular, Gallop, Murmur, Rub Respiratory: Yes: Cough, On Nasal O2, Rhonchi, Tachypnea, Wheezes. No: Regular , CTA Bilaterally, Rales Gastrointestinal: Yes: Normal Bowel Sounds, Soft. No: Distention, Tenderness Extremities: Yes: WNL Edema: No Labs: CBC, BMP 07/06/17 06:00 07/06/17 06:00 Discharge Summary Reason For Visit: ACUTE KIDNEY INJURY,SOB,COPD,PNA Current Active Problems COPD (chronic obstructive pulmonary disease) (Acute) PNA (pneumonia) (Acute) Sepsis (Acute) Hospital Course: (1) PNA (pneumonia) Code(s): J18.9 - PNEUMONIA, UNSPECIFIED ORGANISM Qualifiers: Pneumonia type: due to unspecified organism Laterality: unspecified laterality Lung location: unspecified part of lung Qualified Code(s): J18.9 - Pneumonia, unspecified organism (2) RON (acute kidney injury) Code(s): N17.9 - ACUTE KIDNEY FAILURE, UNSPECIFIED (3) HTN (hypertension) Code(s): I10 - ESSENTIAL (PRIMARY) HYPERTENSION (4) COPD (chronic obstructive pulmonary disease) Code(s): J44.9 - CHRONIC OBSTRUCTIVE PULMONARY DISEASE, UNSPECIFIED Qualifiers: COPD type: COPD with acute exacerbation Qualified Code(s): J44.1 - Chronic obstructive pulmonary disease with (acute) exacerbation (5) Sepsis Code(s): A41.9 - SEPSIS, UNSPECIFIED ORGANISM Ms Wick is a 52 year old female who came in with pneumonia and shortness of breath. She was admitted to the hospital and started on rocephin and zithromax. She was also started on scheduled duonebs. Her breathing was still labored so IV steroids were also stared. She did not improve in 24 hours, however she says she is feeling better and that she has to go home. Explained to her the risks of leaving AMA, she understood but still wanted to leave anyway. Prescriptions were sent for antibiotics, steroid taper, and lactobacillus and she was instructed to follow up with Dr Grewal this week. Patient left AMA. Condition: Poor - Instructions Diet, Activity, Other Instructions: follow up with Dr Grewal later this week Referrals: Garth Grewal MD [Staff Physician] - 1 Week Disposition: HOME - Home Medications Comprehensive Discharge Medication List: Ambulatory Orders Albuterol Sulfate Inhaler - [Ventolin HFA Inhaler -] 1 - 2 inh PO QID PRN #1 inhaler 05/16/17 Hydrochlorothiazide [Hctz -] 0 mg PO DAILY 05/16/17 Amoxicillin/Potassium Clav [Augmentin 875-125 Tablet] 1 each PO BID #12 tablet 07/06/17 Azithromycin 500 mg PO DAILY #4 tablet 07/06/17 Lactobacillus Acidophilus [Bacid -] 1 tab PO DAILY #14 tab 07/06/17 predniSONE [Deltasone -] 5 mg PO ASDIR #32 tab 07/06/17
[2017-07-06] MEDS ORDERED: IPRATROPIUM BR 0.02% 0.5 MG/2.5 ML VIAL.NEB. NEB SCH (12:00)
[2017-07-06] MEDS ORDERED: ALBUTEROL SO4 0.5 % INH SOLN 2.5 MG/0.5 ML VIAL.NEB. NEB SCH (12:00)
== END 2017-07-06 13:03 | disposition home or self-care (01) | DRG 720 ==
LOC: JER 08:07 → JERBED 11:20 → J4S 15:34
PROVIDERS: ADMIT Internal Medicine; ATTEND Internal Medicine
DX: A41.9 Sepsis, unspecified organism (principal); N17.9 Acute kidney failure, unspecified; E87.2 Acidosis; J18.9 Pneumonia, unspecified organism; J44.1 Chronic obstructive pulmonary disease with (acute) exacerbation; J44.0 Chronic obstructive pulmonary disease with (acute) lower respiratory infection; I10 Essential (primary) hypertension; F17.210 Nicotine dependence, cigarettes, uncomplicated; F41.9 Anxiety disorder, unspecified; F32.9 Major depressive disorder, single episode, unspecified
CPT/HCPCS: 36415; 71045-TC-FY; 80048; 80053; 81003; 81015; 82803; 83605; 83735; 83880; 84100; 84484; 85025; 85610; 85730; 87040; 87086; 87804; 87899; 93005; 93010; 94640; 99285-25; J1644; J7030; J7620

== ENCOUNTER 2018-10-08 09:16 | Emergency (ER) | payer OTHER ==
[2018-10-08 09:25] VITALS: TEMP 98.2; BMI 31.6
--- NOTE | 2018-10-08 10:18 | PDOC ---
History of Present Illness - General Chief Complaint: Pain Stated Complaint: SENT BY PCP Time Seen by Provider: 10/08/18 09:46 History Source: Patient Exam Limitations: No Limitations - History of Present Illness Initial Comments: 10/08/18 10:12 53 yo F smoker w/ a h/o COPD, sarcoidosis, HTN, sepsis comes in c/o 1 week of bilateral LE swelling and pain. Her PMD told her to come to the ED to R/O DVT. She also says that she has not been feeling well since yesterday w. felling of generalized malaise, fever of 101 and diffuse lower abdominal pain since yesterday, occasional dry cough for 1 week. Also c/o 1 hr sgo sudden onset of midsternal chest pressure with difficulty breathing which started a couple of hours ago, It feels different than her COPD. Also w/ (+)nausea, no vomiting, no diarrhea. No burning/pain on urination. No h/o PE/DVT in the past, no estrogen use, no recent surgery, (+)prolonged periods of immobilization at home as per pt (5hrs at a time sitting because it is no hot outside), no recent trauma/fall, no h/o malignancy, no hemoptysis. 10/08/18 10:25 10/08/18 13:15 Past History - Past Medical History Allergies/Adverse Reactions: Allergies Allergy/AdvReac Type Severity Reaction Status Date / Time latex Allergy Verified 10/08/18 09:25 aspirin AdvReac Mild vomitting Verified 10/08/18 09:25 Home Medications: Ambulatory Orders Ipratropium/Albuterol Sulfate [Combivent Respimat Inhal [place]] 4 gm IH DAILY 05/24 Sulfamethoxazole/Trimethoprim [Bactrim Ds -] 1 tab PO BID 3 Days #6 tablet 10/08 Asthma: Yes Cardiac Disorders: Yes COPD: Yes (SARCOIDOSIS) DVT: No GI Disorders: Yes (GALLSTONES) HTN: Yes - Suicide/Smoking/Psychosocial Hx Smoking Status: Yes Smoking History: Current every day smoker Have you smoked in the past 12 months: Yes Number of Cigarettes Smoked Daily: 20 Information on smoking cessation initiated: No 'Breaking Loose' booklet given: 07/05/17 Hx Alcohol Use: No Drug/Substance Use Hx: No Substance Use Type: None Review of Systems - Review of Systems Able to Perform ROS?: Yes Constitutional: Yes: Fever, Malaise. No: Chills, Night Sweats HEENTM: No: Eye Pain, Recent change in vision, Throat Pain Respiratory: Yes: Cough, Shortness of Breath Cardiac (ROS): Yes: Chest Pain. No: Palpitations, Chest Tightness ABD/GI: Yes: Nausea. No: Diarrhea, Vomiting, Abdominal cramping : No: Dysuria, Hematuria Musculoskeletal: No: Back Pain Integumentary: No: Rash Neurological: No: Headache, Numbness Psychiatric: Yes: Change in Appetite Endocrine: No: Unexplained Weight Loss *Physical Exam - Vital Signs Last Vital Signs Temp Pulse Resp BP Pulse Ox 98.2 F 86 18 157/87 97 10/08/18 09:22 10/08/18 09:22 10/08/18 09:22 10/08/18 09:22 10/08/18 09:22 - Physical Exam General Appearance: Yes: Nourished. No: Apparent Distress HEENT: positive: DOROTHY, Normal ENT Inspection, Normal Voice. negative: Pale Conjunctivae, Scleral Icterus (R), Scleral Icterus (L) Neck: positive: Supple. negative: Decreased range of motion, Tender midline Respiratory/Chest: positive: Lungs Clear, Normal Breath Sounds. negative: Respiratory Distress, Accessory Muscle Use Cardiovascular: positive: Regular Rhythm, Regular Rate Gastrointestinal/Abdominal: positive: Normal Bowel Sounds, Tender (mild epigastric and suprapubic tenderness, no tenderness at McBurney's point, (-) gee's sign), Soft Musculoskeletal: positive: Normal Inspection. negative: CVA Tenderness, Decreased Range of Motion Extremity: positive: Normal Capillary Refill, Normal Inspection, Normal Range of Motion. negative: Tender, Pedal Edema, Swelling, Calf Tenderness ((-)Karan sign) Integumentary: positive: Normal Color, Dry. negative: Jaundice, Rash Neurologic: positive: Fully Oriented, Alert, Normal Mood/Affect ED Treatment Course - LABORATORY CBC & Chemistry Diagram: 10/08/18 10:50 10/08/18 10:50 Medical Decision Making - Medical Decision Making 10/08/18 10:33 53 yo F smoker w/ bilateral LE swelling and pain R/O DVT. Doppler ordered ALso w/ fever, abdominal pain, nausea, CP/SOB, just had 1 episode of NBNB vomiting now. WIll line and lab, do an EKG, cardiac enzymes, CXR, give pepcid, zofran and reassess 10/08/18 13:13 Pt feels a lot better. Still c/o mid nausea. Since her CP started an hour before she came in, will do a second set of cardiac enzymes, it has been 5 hrs. WIll repeat EKG and if WNLs, will dishcarge Urine with bacteria. Pt syas that she is prone to UTIs, will discharge with antibiotics and urology referral. 10/08/18 14:10 Pt initially said that she did not want to wait for results, she needed to go home to lay down and rest. Now says that she is going to get something to eat. She removed her IV and said said she will be back in 20mns. I explained to her that she cannot leave because her BP is high and cardiac enzymes are pending. If she leaves, it will have to be against medical advice. Pt says that she does not want to leave against medical advice, she will be back in 15mns 10/08/18 14:52 Pt returned BP repeated 169/90. Trop negative. Pt says that she feels better, she just wants to go home. WIll discharge with PMD follow up Urology follow up Last positive urine culture in 2011 was sensitive to bactrim. Will give a Rx for bactrim for 3 days. Return for worsening/concerning symptoms Pt verbalizes understanding and agrees with plan *DC/Admit/Observation/Transfer Diagnosis at time of Disposition: Bacteriuria, Chest discomfort Leg pain Qualifiers: Laterality: bilateral Qualified Code(s): M79.604 - Pain in right leg; M79.605 - Pain in left leg - Discharge Dispostion Disposition: HOME Condition at time of disposition: Stable - Referrals Referrals: Garth Grewal MD [Primary Care Provider] - Harvey Dempsey MD [Staff Physician] - - Patient Instructions Additional Instructions: Please make an appointment with the urologist and with your PMD for this week. Return for worsening/concerning symptoms including worsening chest pain, vomiting, abdominal pain, fever. - Post Discharge Activity
[2018-10-08] MEDS ORDERED: FAMOTIDINE 20 MG/50 ML IVPB 20 MG/50 ML MG IVPB ONE ×2 (10:34→11:01)
[2018-10-08] MEDS ORDERED: ONDANSETRON 4 MG/2 ML VIAL IVPUSH ONE (10:34)
--- NOTE | 2018-10-08 10:54 | PDOC ---
*Physical Exam - Vital Signs Last Vital Signs Temp Pulse Resp BP Pulse Ox 98.2 F 86 18 157/87 97 10/08/18 09:22 10/08/18 09:22 10/08/18 09:22 10/08/18 09:22 10/08/18 09:22 ED Treatment Course - LABORATORY CBC & Chemistry Diagram: 10/08/18 10:50 10/08/18 10:50 Medical Decision Making - Medical Decision Making 10/08/18 10:53 The patient was seen and evaluated in conjunction with BRANDEN Arechiga under my direct supervision, ancillary studies were reviewed. I independently interviewed and evaluated the patient and I agree with the plan as outlined by Rukhsana . *DC/Admit/Observation/Transfer Diagnosis at time of Disposition: Bacteriuria, Chest discomfort Leg pain Qualifiers: Laterality: bilateral Qualified Code(s): M79.604 - Pain in right leg - Discharge Dispostion Disposition: HOME Condition at time of disposition: Stable - Prescriptions Prescriptions: Sulfamethoxazole/Trimethoprim [Bactrim Ds -] 1 tab PO BID 3 Days #6 tablet - Referrals Referrals: Harvey Dempsey MD [Staff Physician] - Garth Grewal MD [Primary Care Provider] - - Patient Instructions Additional Instructions: Please make an appointment with the urologist and with your PMD for this week. Return for worsening/concerning symptoms including worsening chest pain, vomiting, abdominal pain, fever. - Post Discharge Activity
[2018-10-08] MEDS ORDERED: ONDANSETRON 4 MG/2 ML VIAL ONE (11:00)
[2018-10-08 11:10] LABS: EPI CELLS 4.5 /HPF (0-5/HPF); HYALINE CASTS 2 /lpf (0-8); PH,URINE 5.5 (5.0-8.0); URINE APPEARANCE CLEAR; URINE BACTERIA 79.6 /hpf (NEGATIVE); URINE BILIRUBIN NEGATIVE (NEGATIVE); URINE COLOR YELLOW; URINE GLUCOSE (UA) NEGATIVE (NEGATIVE); URINE KETONE NEGATIVE (NEGATIVE); URINE LEUK ESTERASE TRACE (NEGATIVE); URINE NITRITE NEGATIVE (NEGATIVE); URINE PROTEIN NEGATIVE (NEGATIVE); URINE RBC 1 /hpf (0-4); URINE UROBILINOGEN 0.2 mg/dL (0.2-1.0); URINE WBC 2 /hpf (0-5)
[2018-10-08 11:13] LABS: BASO % 0.9 % (0-2.0); EOS % 0.9 % (0-4.5); HEMATOCRIT 43.1 % (32.4-45.2); HEMOGLOBIN 14.9 GM/dL (10.7-15.3); LYMPH % 20.5 % (8-40); MCH 34.4 pg (25.7-33.7); MCHC 34.5 g/dl (32.0-36.0); MEAN CELL VOLUME 99.7 fl (80-96); MEAN PLT VOLUME 8.9 fl (7.5-11.1); MONO % 9.4 % (3.8-10.2); NEUT % 68.3 % (42.8-82.8); PLATELET COUNT 234 K/MM3 (134-434); RBC 4.32 M/mm3 (3.60-5.2); RDW 13.7 % (11.6-15.6)
[2018-10-08 11:20] LABS: MAGNESIUM 2.1 mg/dL (1.8-2.4)
[2018-10-08 11:27] LABS: BILIRUBIN,TOTAL 0.5 mg/dL (0.2-1); BLOOD UREA NITROGEN 16.2 mg/dL (7-18); CALCIUM 8.9 mg/dL (8.5-10.1); CREATININE 1.1 mg/dL (0.55-1.3); POTASSIUM 4.1 mmol/L (3.5-5.1); TOT PROT 6.8 g/dl (6.4-8.2)
[2018-10-08 11:37] LABS: INR 0.96 (0.83-1.09); PROTHROMBIN TIME (PATIENT) 11.3 SEC (9.7-13.0)
[2018-10-08 14:03] VITALS: BP 179/109; PULSE 87
--- NOTE | 2018-10-09 09:04 | EKG ---
Test Reason : Blood Pressure : / mmHG Vent. Rate : 085 BPM Atrial Rate : 085 BPM P-R Int : 162 ms QRS Dur : 106 ms QT Int : 358 ms P-R-T Axes : 052 033 056 degrees QTc Int : 426 ms NORMAL SINUS RHYTHM NORMAL ECG WHEN COMPARED WITH ECG OF 08-OCT-2018 10:18, NO SIGNIFICANT CHANGE WAS FOUND Confirmed by ALYSSIA LOZANO MD ([id number]) on 10/09/2018 9:04:08 AM Referred By: Confirmed By:ALYSSIA LOZANO MD
--- NOTE | 2018-10-09 09:05 | EKG ---
Test Reason : Blood Pressure : / mmHG Vent. Rate : 088 BPM Atrial Rate : 088 BPM P-R Int : 154 ms QRS Dur : 096 ms QT Int : 354 ms P-R-T Axes : 016 046 059 degrees QTc Int : 428 ms NORMAL SINUS RHYTHM NORMAL ECG WHEN COMPARED WITH ECG OF 05-JUL-2017 08:29, NO SIGNIFICANT CHANGE WAS FOUND Confirmed by ALYSSIA LOZANO MD ([id number]) on 10/09/2018 9:04:25 AM Referred By: Confirmed By:ALYSSIA LOZANO MD
== END 2018-10-08 15:03 | disposition home or self-care (01) ==
LOC: JER 09:16
PROC: 3E033GC Introduction of Other Therapeutic Substance into Peripheral Vein, Percutaneous Approach (ICD-10-PCS; principal; 2018-10-08)
PROC: 3E033GC Introduction of Other Therapeutic Substance into Peripheral Vein, Percutaneous Approach (ICD-10-PCS; 2018-10-08)
DX: R82.71 Bacteriuria (principal); R07.89 Other chest pain; M79.604 Pain in right leg; M79.605 Pain in left leg; I10 Essential (primary) hypertension; J44.9 Chronic obstructive pulmonary disease, unspecified; D86.9 Sarcoidosis, unspecified
CPT/HCPCS: 36415; 71046-TC-FY; 80053; 81003; 82550; 82553; 83690; 83735; 84100; 84484; 85025; 85610; 86850; 86900; 86901; 87086; 93005; 93010; 93970-TC; 96365; 96375; 99284-25

== ENCOUNTER 2018-12-08 03:13 | Emergency (ER) | payer OTHER ==
[2018-12-08 03:21] VITALS: PULSE 90; TEMP 97.7; BMI 30.7
--- NOTE | 2018-12-08 03:32 | PDOC ---
History of Present Illness - General Chief Complaint: Choking Sensation Stated Complaint: DIFF SWALLOWING Time Seen by Provider: 12/08/18 03:26 History Source: Patient Exam Limitations: No Limitations - History of Present Illness Initial Comments: 12/08/18 05:07 This is a 53-year-old morbidly obese female who comes in complaining of unable to swallow some of her secretions that are stuck in the back of her throat. Patient called the pharmacy and they told her it could be secondary to the amoxicillin she was taking advised to go to the ER. Patient otherwise was able to drink a glass of tea and has no difficulty swallowing the rest of her secretions. Patient has no shortness of breath chest pain or difficulty talking. Allergies: as per nursing notes Past Medical History: none Social history: Lives with family. No smoking. No alcohol. No illicit drugs. Surgical history: None General: No fevers or chills, no weakness, no weight loss HEENT: No change in vision. No sore throat,. No ear pain, difficulty swallowing as per HPI CardioVascular: no chest discomfort. No shortness of breath Respiratory:No cough, or wheezing. Gastrointestinal: no nausea, vomiting, diarrhea or constipation, No rectal bleeding Genitourinary: No dysuria, hematuria, or frequency Musculoskeletal: No joint or muscle pain or swelling Neurologic: No headache, vertigo, dizziness or loss of consciousness Psychiatric: nor depression Skin: No rashes or easy bruising Endocrine: no increased thirst or abnormal weight change Allergic: no skin or latex allergy All other systems reviewed and normal GENERAL: The patient is awake, alert, and fully oriented, in no acute distress. HEAD: Normal with no signs of trauma. Throat: There is some mild erythema of the posterior oropharynx otherwise normal there is no exudate or foreign body or angioedema. There is no submandibular lymphadenopathy CHEST: Lungs are clear to auscultation bilaterally there is good air entry. EYES: Pupils equal, round and reactive to light, extraocular movements intact, sclera anicteric, conjunctiva clear. EXTREMITIES:atraumatic, Normal range of motion, no edema. NEUROLOGICAL: Normal speech, normal gait. PSYCH: Normal mood, normal affect. SKIN: Warm, Dry, normal turgor, no rashes or lesions noted. Assessment and plan: This is a 53-year-old female who comes in complaining that she feels like there is something in the back of her throat and she cannot swallow it. However she has a normal exam there is good air entry she has otherwise able to swallow her secretions and eat and drink. Patient was reassured and discharged told to follow-up with her doctor. Past History - Past Medical History Allergies/Adverse Reactions: Allergies Allergy/AdvReac Type Severity Reaction Status Date / Time latex Allergy Verified 10/08/18 09:25 aspirin AdvReac Mild vomitting Verified 10/08/18 09:25 Home Medications: Ambulatory Orders Ipratropium/Albuterol Sulfate [Combivent Respimat Inhal Dennis] 4 gm IH DAILY 05/24 Sulfamethoxazole/Trimethoprim [Bactrim Ds -] 1 tab PO BID 3 Days #6 tablet 10/08 Asthma: Yes Cardiac Disorders: Yes COPD: Yes (SARCOIDOSIS) DVT: No GI Disorders: Yes (GALLSTONES) HTN: Yes - Psycho Social/Smoking Cessation Hx Smoking Status: Yes Smoking History: Current every day smoker Have you smoked in the past 12 months: Yes Number of Cigarettes Smoked Daily: 25 Information on smoking cessation initiated: Yes 'Breaking Loose' booklet given: 07/05/17 Hx Alcohol Use: No Drug/Substance Use Hx: No Substance Use Type: None Respiratory Specific PMHX - Complaint Specific PMHX Angina: No *Physical Exam - Vital Signs Last Vital Signs Temp Pulse Resp BP Pulse Ox 97.7 F 90 16 190/120 H 96 12/08/18 03:14 12/08/18 03:21 12/08/18 03:14 12/08/18 03:14 12/08/18 03:21 Discharge - Discharge Information Problems reviewed: Yes Clinical Impression/Diagnosis: Difficulty in swallowing Qualifiers: Dysphagia type: unspecified Qualified Code(s): R13.10 - Dysphagia, unspecified Condition: Good Disposition: HOME - Admission No - Follow up/Referral Referrals: Garth Grewal MD [Primary Care Provider] - - Patient Discharge Instructions Additional Instructions: Return to the emergency department immediately with ANY new, persistent or worsening symptoms. Continue any medications as previously prescribed by your physician. You should follow up with your primary doctor as soon as possible regarding today's emergency department visit. . Please make sure your doctor reviews the results of your emergency evaluation. Thank you for coming to the Emergency Department today for your care. It was a pleasure to see you today. Please note that your evaluation is INCOMPLETE until you follow-up with your doctor. - Post Discharge Activity
[2018-12-08 03:46] VITALS: BP 163/95
== END 2018-12-08 03:46 | disposition home or self-care (01) ==
LOC: FER 03:13
DX: R13.10 Dysphagia, unspecified (principal); F17.210 Nicotine dependence, cigarettes, uncomplicated; Z91.040 Latex allergy status; Z88.8 Allergy status to other drugs, medicaments and biological substances; I10 Essential (primary) hypertension; D86.9 Sarcoidosis, unspecified; J45.909 Unspecified asthma, uncomplicated; I51.9 Heart disease, unspecified; K80.80 Other cholelithiasis without obstruction
CPT/HCPCS: 99283-25